=== PATIENT | male | born 1960 | race Caucasian/White ===

== ENCOUNTER 2024-08-24 13:24 | Inpatient (IN) | payer MEDICARE, OTHER, SELFPAY ==
[2024-08-24] VITALS (29 sets, daily range): BP systolic 90–125; BP diastolic 50–89; BMI 30.1; BMI 31.2
--- NOTE | 2024-08-24 08:44 | ED.GENMED ---
History of Present Illness
General
Chief Complaint: Heart Rate Problem
Source: patient
Exam Limitations: none
Time Seen by Provider: 08/24/24 08:30
History of Present Illness
History of Present Illness:
See MDM
Past History
Past History
ED Past Medical History: HTN and Other
ED Past Surgical History: Cardiac
Social History
Tobacco: Non-smoker
Alcohol: None
Phy Exam
Physical Exam
Physical Exam:
See MDM
Course
Orders/Labs/Results
Orders:
Orders
08/24/24 08:33
Electrocardiogram (*1) Urgent
Reason for Study: Chest Pain
EKG- Treatment ONCE
08/24/24 08:35
Complete Blood Count/With Diff Urgent
Comprehensive Metabolic Panel Urgent
Magnesium Urgent
PTT Urgent
Prothrombin Time Urgent
Troponin I Urgent
08/24/24 10:43
Consult Cardiology [CARDIOLOGY CONSULT] Urgent
Consulting Provider: Bud Boone
Was physician already notified: Yes
Amiodarone [Cordarone] 900 mg DEXTROSE 5% PVC-free BAG [D5W PVC-free BAG] 500 ml IV NOW
Initial Dose in mg/min:: 1
Duration of initial dose (hours):: 6
Subsequent dose in mg/min:: 0.5
Duration of subsequent dose (hours):: 18
Maximum dose in mg/min:: 1
Hold and notify provider if:: Heart rate < 60 BPM or SBP < 90 mmHg or MAP < 60 mmHg
Abnormal Lab Results
08/24/24
08:35
MCH 32.6 H pg
(27.0-31.0)
Lymphocytes % 19.2 L %
(20.5-51.1)
Carbon Dioxide 21 L mmol/L
(22-30)
BUN 25 H mg/dl
(9-20)
Glucose 121 H mg/dl
(70-99)
Troponin I 0.038 H* ng/ml
08/24/24 08:35
08/24/24 08:35
Vital Signs
Initial and Last Documented VS:
Initial Vital Signs
BP
125/77
08/24/24 08:36
Last Documented Vital Signs
Pulse Resp BP Pulse Ox
66 18 96/67 96
08/24/24 10:30 08/24/24 10:30 08/24/24 10:30 08/24/24 10:30
MDM/Problems Addressed
Differential Diagnosis Includes:
HPI and MDM Narrative:
64-year-old male presenting for evaluation of multiple shocks from his defibrillator. Patient states his defibrillator was placed about a year ago due to low ejection fraction. Patient was hunting today and he was pulling out the deer. He felt 4
shocks. EMS arrived and noted that he was nonsustained V. tach and had multiple rounds of PVCs. They called for medical command and gave 150 mg of amiodarone. Patient currently denying any chest pain or shortness of breath
Physical exam
General: Well appearing and non-toxic
HEENT: protecting airway
Neck: appears supple
CV: No evidence of cyanosis. Regular rate and rhythm
Resp: No accessory muscle use. Lungs clear
Abd: Non-distended
Extremities: No deformities
Neuro: alert
Psych: Normal affect
Skin: Intact
Problems Addressed including Acute and Chronic Conditions affecting care:
1. Defibrillator shock
Acuity: acute
Prognosis: unstable
Details: Patient get amiodarone by EMS. Will obtain basic blood work and discussed case with cardiology
Updates
Case discussed with cardiology who evaluated the interrogation report. It appears that the shocks were not catching. Will place on amnio drip and admit. ZOLL pads placed
Differential Diagnosis (but not limited to): Coronary artery disease, V. tach, V-fib
Testing considered: Chest x-ray but he denies shortness of breath or chest pain
Drug therapy (if applicable): OTC meds, please see d/c instruction regarding Rx drugs
Amount and/or Complexity of Data Reviewed
Clinical info obtained from: Patient
External data reviewed: N/A
Labs I independently reviewed (but not limited to): Mildly elevated troponin but this is expected given 4 shocks
Radiology: N/A
Pulse Ox: not hypoxic
EKG independently reviewed: Sinus rhythm, left axis, no STEMI
Commercial Real Estate Assistant: Sinus rhythm
Critical Care: N/A
Risk of Complication:
Social Determinants of health: Good social support
Discussed with other providers: Cementer Helper, hospitalist
Escalation of Care includes Admit/Obs: Given that the defibrillator shocks are not catching, will place on Amio drip and admit
Occasional wrong word or 'sound a like' substitutions may have occurred due to the inherent limitations of voice recognition software. Read the chart carefully and recognize, using context, where substitutions have occurred.
*Critical Care Note
Total Time (30-74mins, 75-104mins- exclusive of procedures): Not Applicable
ED Attending Note
-
Portions of this chart may have been created with voice recognition software.� Occasional wrong word or��sound alike� substitutions may have occurred due to the inherent limitations of voice recognition software.
Discharge Plan
Departure
Patient Disposition: Admit
Date of Disposition: 08/24/24
Time of Disposition: 10:47
Admit to: IMU
Presentation/result/management discussed w/ accepting MD/DO: Hospitalist
Discharge Problem:
V-tach
Prescriptions:
No Action
spironolactone 25 mg Tablet
12.5 mg PO DAILY
metoprolol succinate 25 mg Tablet Extended Release 24 Hr
50 mg PO DAILY AT 0700
metoprolol succinate 25 mg Tablet Extended Release 24 Hr
25 mg PO ONCE PM
valsartan 160 mg Tablet
160 mg PO BID
Eliquis 5 mg Tablet
5 mg PO BID
PreserVision AREDS 2 Plus MV 200 mcg-15 mcg- 5 mg-1 mg Capsule
1 cap PO BID
Discharge Date and Time
Print Language: SINHALA
[2024-08-24 08:53] LABS: % Basophils 1.4 % (0-2); % Eosinophils 1.8 % (0-6); % Immature Granulocytes 0.5 % (0-0.5); % Lymphocytes 19.2 % (20.5-51.1); % Monocytes 8.2 % (1.7-9.3); % Neutrophils 68.9 % (42.2-75.2); Absolute Basophils 0.1 10^3/uL (0-0.2); Absolute Eosinophils 0.1 10^3/uL (0-0.7); Absolute Lymphocytes 1.2 10^3/uL (1.2-3.4); Absolute Monocytes 0.5 10^3/uL (0.1-0.6); Absolute Neutrophils 4.3 10^3/uL (1.4-6.5); Hematocrit 43.2 % (39.0-52.0); Hemoglobin 15.5 g/dL (13.0-18.0); Mean Corp Hgb Conc. 35.9 g/dL (33.0-37.0); Mean Corpuscular Hgb 32.6 pg (27.0-31.0); Mean Corpuscular Volume 90.8 fL (80.0-94.0); Mean Platelet Volume 10.4 fL (7.4-10.4); Nucleated Red Blood Cells % 0 % (-); Platelet Count 173 10^3/uL (130-400); Red Blood Cell Count 4.76 10^6/uL (4.70-6.10); Red Cell Dist. Width 12.2 % (11.5-14.5); White Blood Cell Count 6.2 10^3/uL (4.8-10.8)
[2024-08-24 09:05] LABS: ALT (SGPT) 36 U/L (0-50); AST (SGOT) 36 U/L (17-59); Albumin 4.5 g/dl (3.5-5.0); Alkaline Phosphatase 93 U/L (38-126); Blood Urea Nitrogen 25 mg/dl (9-20); Calcium 9.2 mg/dl (8.4-10.2); Carbon Dioxide 21 mmol/L (22-30); Chloride 105 mmol/L (98-107); Estimated Creatinine Clearance 87 ml/min; Glucose 121 mg/dl (70-99); INR 1.06; Magnesium 2.1 mg/dl (1.6-2.3); PT 14.1 Sec (11.4-14.6); Potassium 4.1 mmol/L (3.5-5.1); Sodium 139 mmol/L (135-145); Total Bilirubin 0.5 mg/dl (0.2-1.3); Total Protein 7.3 g/dl (6.3-8.2); eGFR > 60.00
[2024-08-24 09:06] LABS: APTT 34.2 Sec (23.4-35.0)
[2024-08-24 09:20] LABS: Troponin I 0.038 ng/ml
--- NOTE | 2024-08-24 10:41 | CON.CAR ---
Consultation
Consultation Request
Date/Time Consultation Requested: 08/24/2024 at 10 AM
Date/Time Consultation Performed: 08/24/2020 4:10 AM
Requesting Provider: Dr. Bain
Performing Provider: Dr. Boone
Reason for Consultation: ICD shocks
Medical History
-
History of Present Illness:
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
64-year-old male with history of nonischemic cardiomyopathy, reported EF 20%,VT, [employer] ICD, A-fib on remote monitoring ,eport of previous left ventricular thrombus anticoagulation with Eliquis who presented because his ICD went off 4
times. Patient states he was in his usual state of health and went hunting today. He was dragging a deer out of the [place] and shortly after he started dragging a deer felt something in his chest he had no prodrome no lightheadedness or presyncopal
symptoms no palpitations or heart racing he stopped what he was doing and then started to drag a deer again and it went off a second time so he stopped and then it went up a third and then a fourth time he was with his son who called 911 patient
then rested and sat by a tree. He is felt fine since then he says his chest muscle feels a little sore like he is worked out but otherwise no shortness of breath or other symptoms. No recent changes in medical therapy he denies having his ICD
fired in the past.
Review of systems otherwise unremarkable.
Review of records from [facility] patient with history of nonischemic cardiomyopathy and nonsustained VT cardiac catheterization 12/2022 no obstructive coronary artery disease cardiac MRI with EF 24% he wore a LifeVest for period of
time and previously was noticed to have VT below the therapy zone patient had dual-chamber ICD [employer]. 06/2023 ejection fraction 30 to 35% by echo could not exclude apical thrombus. He had remote monitoring 08/14/2023 noting A-fib very
brief episode patient is currently maintained on Eliquis based on his description it sounds as if it was placed for concern of apical thrombus
Past medical history as noted above
Medications
valsartan 160 mg twice daily
Toprol-XL 50 mg in a.m.
Spironolactone 12.5 mg a day
Eliquis 5 mg twice daily
Allergy -Farxiga -
Social History
Tobacco: Non-Smoker
Personal:
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
Family History
Family History: CAD (Negative for premature CAD)
Allergies / Home Medications
Allergy/AdvReac Type Severity Reaction Status Date / Time
No Known Allergies Allergy Unverified 08/24/24 08:46
�Medication �Instructions �Recorded �Confirmed �Type
apixaban 5 mg tablet (Eliquis) 5 mg PO BID 08/24/24 08/24/24 History
metoprolol succinate 25 mg 25 mg PO ONCE PM 08/24/24 08/24/24 History
tablet,extended release 24 hr
metoprolol succinate 25 mg 50 mg PO DAILY AT 0700 08/24/24 08/24/24 History
tablet,extended release 24 hr
mv-mn-folic 200 mcg-vit K 15 1 cap PO BID 08/24/24 08/24/24 History
mcg-lutein 5 mg-zeaxanthin 1 mg
capsule (PreserVision AREDS 2 Plus
Multivit)
spironolactone 25 mg tablet 12.5 mg PO DAILY 08/24/24 08/24/24 History
valsartan 160 mg tablet 160 mg PO BID 08/24/24 08/24/24 History
Review of Systems
-
All other systems: Negative unless noted
Physical Exam
Vital Signs
BP Pulse Ox
125/77 93
08/24/24 08:36 08/24/24 08:45
Lab Results
08/24/24 08:35
08/24/24 08:35
Troponin I 0.038 ng/ml H* 08/24/24 08:35
Physical Exam
General: Well Developed and Well Nourished
HEENT: Normocephalic, Anicteric and Other (EOMI PERRL, neck no adenopathy no JVD)
Respiratory: Clear and Wheezes
Cardiac: Regular Rhythm
GI: Soft, Non Tender, Normal Bowel Sounds and Other (No mass no hepatosplenomegaly detected)
Genito-urinary: No Costovertebral Tender
Skin: Warm and Dry
Neuro: Awake and Alert
Hematologic/Lymphatic: No Lymphadenopathy
Impression / Plan
-
ICD shock/ventricular tachycardia
-Patient with 4 shocks for VT. VT rates ranging from the 160s to 200. Patient tolerated the episodes without syncope or near syncope. Does not appear that VT promptly broke with ICD therapy.
Reviewed with EP
-IV amiodarone
-Monitor for recurrent VT
-Due to question of effectiveness of ICD therapy we will keep pads on patient.
-EP to further review ICD this admission
-Echo this admission
-Check troponins
-No prior history of obstructive disease based on report of catheterization in 2022. Will determine with EP whether to proceed with additional cath.
.
Cardiomyopathy.
-Last EF 30-35%
-Euvolemic
-Continue with current GDMT
-Note patient did not tolerate Entresto
-He reports an allergy to Farxiga
.
History of LV thrombus. Suspected on prior echo. Continue Eliquis
PAF. Reported to have some A-fib noted on prior remote monitoring. Continue anticoagulation
Data Reviewed
-
EKG: Report Reviewed by me
Radiology: Report Reviewed by me
Ultrasound: Report Reviewed by me
Medical Tests (Nuc Med, Echo etc): Report Reviewed by me
Labs: Labs Reviewed by me
[2024-08-24] MEDS: CORDARONE 518 MG IV (11:23)
--- NOTE | 2024-08-24 12:51 | HPS.HSE ---
Family Physician
-
Family Physician: Ese Taylor
Chief Complaint
-
ICD discharge x 4
History of Present Illness
64-year-old male with HFrEF (LVEF 20%, nonischemic cardiomyopathy), AF on Eliquis, HTN, H/O VT s/p AICD, H/O LV thrombus that presented to the ED today after his ICD discharged 4 times. Was in his usual state of health and went hunting today. Was
dragging a deer out of the [place] when he had a sensation of discomfort in his chest. Denies lightheadedness, dyspnea, other prodromal symptoms. States he stopped what he was doing then started to drag the deer again and it occurred again.
Happened 2 more times and his son called 911. Complained of muscular discomfort of the chest wall subsequently but no other symptoms.
AFVSS on arrival. Initial labs unremarkable. ECG showed sinus rhythm with first-degree AVB, LAD, low voltage but no acute ST changes or T wave abnormalities. Initial troponin 0.038. Was seen by cardiology while in the ED who initiated IV
amiodarone drip. Recommended to keep Zoll pads in place due to questionable effectiveness of ICD. Recommended echo and troponin trending. Hemodynamically stable throughout ED course
Medical History
Past Medical History
Past Medical History: Reports CHF and HTN
Past Surgical History: Reports Cardiac (ICD placement, negative coronary angiography at [facility])
Social History
Tobacco: Non-smoker
Alcohol: Occasional
Drug: None
Family History
Family History: Not pertinent (Negative for early onset CHF or CAD) and Other
Allergies / Home Medications
Allergies reflects when Allergies were last updated in [employer].
Home Medications with original date entered in [employer]
Allergy/Medication List:
Allergies
Allergy/AdvReac Type Severity Reaction Status Date / Time
No Known Allergies Allergy Unverified 08/24/24 08:46
Home Medications
acetaminophen 325 mg tablet (Tylenol) 650 mg PO Q4HPRN PRN shoulder pains 08/24/24
apixaban 5 mg tablet (Eliquis) 5 mg PO BID 08/24/24
metoprolol succinate 25 mg tablet,extended release 24 hr 25 mg PO QPM 08/24/24
metoprolol succinate 25 mg tablet,extended release 24 hr 50 mg PO DAILY 08/24/24
mv-mn-folic 200 mcg-vit K 15 mcg-lutein 5 mg-zeaxanthin 1 mg capsule (PreserVision AREDS 2 Plus Multivit) 1 cap PO BID 08/24/24
spironolactone 25 mg tablet 12.5 mg PO DAILY 08/24/24
valsartan 160 mg tablet 160 mg PO BID 08/24/24
Review of Systems
-
History Source: Patient
A 12 point ROS was completed and negative except as noted: Yes
Constitutional: Reports No Symptoms
EENT: Reports No Symptoms
Respiratory: Reports No Symptoms
Cardiac: Reports See HPI
Abdomen/GI: Reports No Symptoms
: Reports No Symptoms
Musculoskeletal: Reports No Symptoms
Skin: Reports No Symptoms
Neurological: Reports No Symptoms
Endocrine: Reports No Symptoms
Hematologic/Lymphatic: Reports No Symptoms
Psych: Reports No Symptoms
Physical Exam
Vital Signs
Vital Signs
Pulse Resp BP Pulse Ox
66 18 96/67 96
08/24/24 10:30 08/24/24 10:30 08/24/24 10:30 08/24/24 10:30
Physical Exam
General: No Apparent Distress, Comfortable, Conversant and Obese
HEENT: NormoCephalic, Anicteric, Moist mucous membranes, Atraumatic and PERRLA
Respiratory: Clear and Non Labored Respirations; No Accessory Resp Muscle Use
Cardiac: S1/S2 and Regular Rhythm; No Murmur, Rub, Gallop, Peripheral Edema or JVD
GI: Soft, Non Tender, Non Distended and Normal Bowel Sounds
Musculoskeletal: No Clubbing, No Cyanosis and No Edema
Skin: Warm and Dry; No Rash or Jaundice
Neuro: AO x 3 and Nonfocal/grossly intact; No Tremors
Psych: Calm
Laboratory Results
-
08/24/24 08:35
08/24/24 08:35
Laboratory Results
PT 14.1 Sec (11.4-14.6) 08/24/24 08:35
INR 1.06 08/24/24 08:35
APTT 34.2 Sec (23.4-35.0) 08/24/24 08:35
Total Bilirubin 0.5 mg/dl (0.2-1.3) 08/24/24 08:35
AST 36 U/L (17-59) 08/24/24 08:35
ALT 36 U/L (0-50) 08/24/24 08:35
Alkaline Phosphatase 93 U/L (38-126) 08/24/24 08:35
Troponin I 0.038 ng/ml H* 08/24/24 08:35
Data Reviewed
-
Lab Data: Labs Reviewed by me and Discussed with Patient
Impression/Plan
-
#Ventricular tachycardia with AICD discharge x4
#H/O VT S/P AICD
-Unclear etiology, possibly malfunctioning AICD
-Status post 4 discharges while out hunting with family
-Had previous LHC at [facility] that was negative
-Evaluated by cardiology in the ED, considering repeat LHC
-Order transthoracic echocardiogram
-Continue IV amiodarone per cardiology
-Monitor on telemetry, maintains ZOLL pads
-Electrolyte goals: K >4, mag >2
#Elevated serum troponin
-Suspect secondary to AICD discharge/VT, cannot rule out underlying ischemia though
-No ischemic ECG findings on studies here, initial troponin 0.038
-Will continue to trend troponin with serial ECG, monitor on telemetry
-Cardiology considering [facility] with angiography while
#HFrEF
#Nonischemic cardiomyopathy
-Unclear etiology for his heart failure; DDx include infiltrative disease, occult ischemia, possible effect of COVID vaccine (?)
-Per records from [facility] LVEF 20%, recent negative coronary angiography
-GDMT includes beta-caroline, MRA, ARB; no SGLT2 (allergy) or ARNI (did not tolerate)
-Not on any standing dose of loop diuretic regimen; appears euvolemic today
-Would consider transition ARB to PRAMOD inhibitor for improved efficacy and HFrEF
#Atrial fibrillation
-Home medications include metoprolol succinate for rate control, Eliquis for anticoagulant
-No known history of electrophysiologic intervention/ablation
-Stable as of now
#HTN
-Antihypertensive regimen includes GDMT as above
-Blood pressure currently on soft side though acceptable for his LVEF
#H/O LV thrombus
-Remains on Eliquis
DVT prophylaxis: Home Eliquis
Diet: Regular, n.p.o. after midnight
CODE STATUS: Full code
Disposition: IVU
--- NOTE | 2024-08-24 14:39 | PTCARENOTE ---
patient arrived from ER with zoll pads on, hand off monitored completed as per protocol. patient on monitor paced rhythm, VSS. IV amiodarone @ 33.3cc/hr via left forearm #20g. patient voided in urinal at bedside. oriented to room and surroundings.
[2024-08-24 15:44] LABS: Troponin I 0.491 ng/ml
--- NOTE | 2024-08-24 16:04 | PTCARENOTE ---
second troponin was drawn and snet to lab, results 0.491, TT Dr. Boone
[2024-08-24] MEDS: TOPROL XL 25 MG PO (17:54)
[2024-08-24] MEDS: OCUVITE SOFTGEL 1 CAP PO (19:33)
[2024-08-24] MEDS: TYLENOL 650 MG PO (19:34)
[2024-08-24] MEDS: DIOVAN 160 MG PO (19:34)
[2024-08-24] MEDS: ELIQUIS 5 MG PO (19:35)
--- NOTE | 2024-08-24 21:07 | PTCARENOTE ---
received patient at the change of shift. AAOx3. denies any sob. complains of muscle 'soreness' around chest and a headache. PRN tylenol given-see mar. Amio gtt infusing at 0.5 mg/min per protocol. IV site intact. troponin sent and received- 0.290.
Apaced on tele 60s. bp stable. assisted patient to the BR-steady, no issues. educated patient to inform RN with any changes and to call for assistance. zoll pads replaced. chest/back clipped prior to placing pads on patient. PM care completed. call
esquivel within reach. makes needs known.
[2024-08-25 03:29] VITALS: BP 97/68
[2024-08-25 04:50] LABS: % Basophils 1.6 % (0-2); % Eosinophils 4.2 % (0-6); % Immature Granulocytes 0.4 % (0-0.5); % Lymphocytes 35.9 % (20.5-51.1); % Neutrophils 47.9 % (42.2-75.2); Absolute Basophils 0.1 10^3/uL (0-0.2); Absolute Eosinophils 0.2 10^3/uL (0-0.7); Absolute Lymphocytes 1.8 10^3/uL (1.2-3.4); Absolute Monocytes 0.5 10^3/uL (0.1-0.6); Absolute Neutrophils 2.4 10^3/uL (1.4-6.5); Hematocrit 43.2 % (39.0-52.0); Hemoglobin 15.1 g/dL (13.0-18.0); Mean Corpuscular Hgb 32.5 pg (27.0-31.0); Mean Corpuscular Volume 92.9 fL (80.0-94.0); Mean Platelet Volume 10.7 fL (7.4-10.4); Nucleated Red Blood Cells % 0 % (-); Platelet Count 165 10^3/uL (130-400); Red Blood Cell Count 4.65 10^6/uL (4.70-6.10); Red Cell Dist. Width 12.4 % (11.5-14.5)
[2024-08-25 06:19] LABS: Blood Urea Nitrogen 20 mg/dl (9-20); Calcium 8.8 mg/dl (8.4-10.2); Carbon Dioxide 26 mmol/L (22-30); Chloride 106 mmol/L (98-107); Estimated Creatinine Clearance 92 ml/min; Glucose 92 mg/dl (70-99); Magnesium 2.2 mg/dl (1.6-2.3); Potassium 4.3 mmol/L (3.5-5.1); Sodium 141 mmol/L (135-145); eGFR > 60.00
[2024-08-25 07:01] VITALS: BP 105/71
--- NOTE | 2024-08-25 07:30 | W.PN.CD ---
Addendum entered and electronically signed by Bud Boone MD 08/25/24 13:40:
I saw and examined the patient.
The AUTO BODY REPAIRMAN's note was reviewed and I agree with the note.
reviewed notes from outpatient sheet pile driver operator. Full cath report not available but notes state that cath at [facility] 12/2022 with no obstructive CAD.
Original Note:
Today's Communication / Plan
-
transition IV amiodarone to oral
NPO after midnight.
Impression / Plan
-
ICD shock/ventricular tachycardia
-Patient with 4 shocks for VT. VT rates ranging from the 160s to 200. Patient tolerated the episodes without syncope or near syncope. Does not appear that VT promptly broke with ICD therapy.
Reviewed with EP
-IV amiodarone- transition to oral load
-Monitor for recurrent VT
-Due to question of effectiveness of ICD therapy we will keep pads on patient.
-EP to further review ICD this admission
-Echo this admission
-Check troponins
-No prior history of obstructive disease based on report of catheterization in 2022. Will determine with EP whether to proceed with additional cath. NPO after night
(Note patitns primary sheet pile driver operator is Dr Khanna and EP who implanted ICD is Dr Gomez)
.
Cardiomyopathy.
-Last EF 30-35% as outpateitn . EF 08/24/24 estimated 40-45%
-Euvolemic
-Continue with current GDMT
-Note patient did not tolerate Entresto
-He reports an allergy to Farxiga
abnorml troponin - may be nonischemic related to VT and ICD shock
.
History of LV thrombus. Suspected on prior echo. Continue Eliquis
PAF. Reported to have some A-fib noted on prior remote monitoring. Continue anticoagulation
Physical Exam
Vital Signs/Labs
Vital Signs
Temp Pulse Resp BP Pulse Ox
98.1 F 71 20 97/68 97
08/25/24 06:59 08/25/24 04:00 08/25/24 06:59 08/25/24 03:29 08/25/24 06:59
08/24/24 08/25/24 08/26/24
06:59 06:59 06:59
Actual Weight 95.9 kg
08/25/24 03:36
08/25/24 03:36
PT 14.1 Sec (11.4-14.6) 08/24/24 08:35
INR 1.06 08/24/24 08:35
APTT 34.2 Sec (23.4-35.0) 08/24/24 08:35
Magnesium 2.2 mg/dl (1.6-2.3) 08/25/24 03:36
LAB Results
08/24/24 08/24/24 08/24/24
08:35 15:07 20:19
Troponin I 0.038 H* 0.491 H* D 0.290 H* D
08/25/24
03:36
Troponin I 0.150 H* D
Physical Exam
Constitutional: No acute distress
Cardiovascular: Rhythm & rate is regular
Respiratory: Respiratory effort normal
GI: Soft
Neuro/Psych: Alert
Data Reviewed
-
Date of Service: August 25, 2024
Medical Decision Making: Reviewed Test Results
Echo: Report Reviewed by me
Medical Tests (PFT, Pathology etc): Report Reviewed by me
Labs: Labs Reviewed by me
[2024-08-25] MEDS: TOPROL XL 50 MG PO (08:34)
[2024-08-25] MEDS: ALDACTONE 12.5 MG PO (08:35)
[2024-08-25] MEDS: PACERONE 400 MG PO ×2 (08:36→19:42)
[2024-08-25] MEDS: DIOVAN 160 MG PO ×2 (08:36→19:42)
[2024-08-25] MEDS: ELIQUIS 5 MG PO ×2 (08:37→19:42)
[2024-08-25] MEDS: OCUVITE SOFTGEL 1 CAP PO ×2 (08:37→19:42)
[2024-08-25] MEDS: LOW STRENGTH ASPIRIN PO (08:38)
[2024-08-25] MEDS: ASPIRIN 325 MG PO (08:38)
--- NOTE | 2024-08-25 08:50 | PTCARENOTE ---
patient awake, watching TV and eating breakfast. Monitor show AV paced, VSS. IV amiodarone @ 16.7 cc/hr, po amiodarone given as ordered and will D/C drip when bag is completed as per MD. pacer pads remain on. patient will go down for chest xray this
am. patient voices no concerns at this time. patient did ask questions concerning plan of care and that he would like his doctors at [facility] to way in on decision making.
[2024-08-25 10:00] VITALS: BMI 31.2
--- NOTE | 2024-08-25 10:43 | PTCARENOTE ---
chest xray completed
--- NOTE | 2024-08-25 11:09 | W.PN.HOSP.TC ---
Today's Communication/Plan
-
N.p.o. after midnight
Left heart cath tomorrow
PO amiodarone regimen
Assessment / Plan
Assessment / Plan
#Ventricular tachycardia with AICD discharge x4
#H/O VT S/P AICD
-Unclear etiology, possibly malfunctioning AICD
-Status post 4 discharges while out hunting with family
-Had previous LHC at [facility] that was negative
-Evaluated by cardiology in the ED, considering repeat LHC
-Echocardiogram performed yesterday showed improved LVEF
-Transitioned IV amiodarone to PO amiodarone
-Monitor on telemetry, maintains ZOLL pads
-Electrolyte goals: K >4, mag >2
-Plan for left heart cath on 08/26
#Elevated serum troponin
-Suspect secondary to AICD discharge/VT, cannot rule out underlying ischemia though
-No ischemic ECG findings on studies here, troponin trend not consistent with ACS
-Will continue to trend troponin with serial ECG, monitor on telemetry
-Cardiology considering LHC with angiography while
#HFrEF
#Nonischemic cardiomyopathy
-Unclear etiology for his heart failure; DDx include infiltrative disease, occult ischemia, possible effect of COVID vaccine (?)
-Per records from [facility] LVEF 20%, recent negative coronary angiography; TTE here showed LVEF 40 to 45%
-GDMT includes beta-caroline, MRA, ARB; no SGLT2 (allergy) or ARNI (did not tolerate)
-Not on any standing dose of loop diuretic regimen; appears euvolemic today
-Would consider transition ARB to PRAMOD inhibitor for improved efficacy and HFrEF
#Atrial fibrillation
-Home medications include metoprolol succinate for rate control, Eliquis for anticoagulant
-No known history of electrophysiologic intervention/ablation
-Stable as of now
#HTN
-Antihypertensive regimen includes GDMT as above
-Blood pressure currently on soft side though acceptable for his LVEF
#H/O LV thrombus
-Remains on Eliquis
DVT prophylaxis: Home Eliquis
Diet: Regular, n.p.o. after midnight
CODE STATUS: Full code
Anticipated Discharge: 24 - 48 hours
Subjective/Interval History
-
Date of Service: August 25, 2024
Seen and examined at bedside. No acute vents reported overnight. AFVSS this morning
He states he feels well, denies any acute complaints including chest pain, dyspnea, palpitations, lightheadedness
Planning for left heart cath tomorrow, states he would like to have his primary precision agronomist involved with planning
Objective Data
-
Labs:
Laboratory Results
08/25/24
03:36
WBC 5.0
Hgb 15.1
Hct 43.2
Plt Count 165
Sodium 141
Potassium 4.3
Chloride 106
Carbon Dioxide 26
BUN 20
Creatinine 0.9
Glucose 92
Calcium 8.8
Vital Signs:
Vital Signs
Temp Pulse Resp BP Pulse Ox
98.1 F 60 20 105/71 97
08/25/24 06:59 08/25/24 09:30 08/25/24 06:59 08/25/24 08:36 08/25/24 08:30
I&O
08/24/24 08/25/24 08/26/24
06:59 06:59 06:59
Intake Total 646.5 / 646.5
Output Total 1175 / 1175
Balance -528.5 / -528.5
Review of Systems
-
History Source: Patient
All other systems: Reviewed and negative
Physical Exam
-
General: Well Developed, Well Nourished, No Apparent Distress and Comfortable
HEENT: Normocephalic, Atraumatic, Moist Mucous Membranes and Anicteric
Respiratory: Clear to Auscultation and Non Labored Respirations
Cardiac: Regular Rhythm and S1/S2; Negative Murmur, Rub or Gallop
GI: Soft, Nontender, Nondistended and Normal Bowel Sounds
Musculoskeletal: No Clubbing, No Cyanosis and No Edema
Skin: Warm, Dry and Normal Turgor; Negative Rash
Neuro: AO x 3 and Nonfocal/Grossly Intact
Psych: Calm
Data Reviewed
-
Labs: Labs Reviewed by me and Discussed with Patient
[2024-08-25 12:03] VITALS: BP 95/70
[2024-08-25 15:14] VITALS: BP 109/74
[2024-08-25] MEDS: TOPROL XL 25 MG PO (17:46)
[2024-08-25 19:37] VITALS: BP 95/66
[2024-08-25 22:23] VITALS: BP 89/57
--- NOTE | 2024-08-26 00:03 | PTCARENOTE ---
Pt rec'd at change of shift awake,alert c/o discomfort from Defib pad on back. Pads removed and new set of pads placed at pts bedside. Paced on telemetry. Pt aware of npo status after mn. call esquivel within reach.
[2024-08-26 03:07] VITALS: BP 98/76
[2024-08-26 04:24] LABS: % Basophils 1.4 % (0-2); % Eosinophils 6.3 % (0-6); % Immature Granulocytes 0.4 % (0-0.5); % Lymphocytes 34.8 % (20.5-51.1); % Monocytes 12.1 % (1.7-9.3); Absolute Basophils 0.1 10^3/uL (0-0.2); Absolute Eosinophils 0.3 10^3/uL (0-0.7); Absolute Lymphocytes 1.7 10^3/uL (1.2-3.4); Absolute Monocytes 0.6 10^3/uL (0.1-0.6); Absolute Neutrophils 2.2 10^3/uL (1.4-6.5); Hemoglobin 14.4 g/dL (13.0-18.0); Mean Corp Hgb Conc. 35.1 g/dL (33.0-37.0); Mean Corpuscular Hgb 32.1 pg (27.0-31.0); Mean Corpuscular Volume 91.3 fL (80.0-94.0); Mean Platelet Volume 10.5 fL (7.4-10.4); Nucleated Red Blood Cells % 0 % (-); Platelet Count 170 10^3/uL (130-400); Red Blood Cell Count 4.49 10^6/uL (4.70-6.10); Red Cell Dist. Width 12.3 % (11.5-14.5); White Blood Cell Count 4.9 10^3/uL (4.8-10.8)
[2024-08-26 04:51] LABS: Blood Urea Nitrogen 20 mg/dl (9-20); Calcium 8.9 mg/dl (8.4-10.2); Carbon Dioxide 23 mmol/L (22-30); Chloride 106 mmol/L (98-107); Estimated Creatinine Clearance 104 ml/min; Glucose 92 mg/dl (70-99); Potassium 4.3 mmol/L (3.5-5.1); Sodium 140 mmol/L (135-145); eGFR > 60.00
[2024-08-26 07:04] VITALS: BP 97/67
--- NOTE | 2024-08-26 07:22 | W.PN.HOSP.TC ---
Addendum entered and electronically signed by Stephanie Lieberman MD 08/26/24 14:26:
I saw and evaluated the patient. I reviewed the resident�s note and agree with findings and plan as documented in the resident�s note
Seen and examined the patient with resident. is at bedside
Patient anxious to go home denies any chest pain or shortness of breath
Exam unremarkable
Discussed with cardiology earlier continue beta-blockers. Would consider sotalol as outpatient amiodarone stopped
Continue Eliquis no need for antiplatelets as he did not comment on that
Reviewed with patient and about no driving for 6 months or unless cleared by his outpatient case folder. Reasoning explained
Need to take blockers especially prior to physical activity discussed. Dose of beta-blockers increased
Discussed with nursing
Discussed with
Total discharge time more than 31 minutes
Original Note:
Today's Communication/Plan
-
Discharge home
Beta-caroline dose increased to 50 mg twice daily
Assessment / Plan
Assessment / Plan
64-year-old male with PMH of HFrEF, AF, hypertension, V. tach status post AICD, left venous thrombus presented to [facility] with AICD discharge x4 while hunting.
#V. tach
Status post AICD discharge x 4
Had previous left heart cath at [facility] that was negative. Patient would like to continue care with providers at [facility]
Cardiology increase metoprolol dose to 50 mg twice daily. Patient told to follow-up with [facility] outpatient
Transition from IV amiodarone to p.o. amiodarone
Continue to monitor on telemetry and maintain ZOLL pads
Continue to monitor potassium (goal greater than 4) and magnesium (goal greater than 2)
#Elevated troponins
Likely secondary to AICD or V. tach, but cannot rule out underlying ischemia
Troponins peaked at 0.290, stop trend. Continue to monitor on telemetry
#HFrEF
Per records at [facility] ejection fraction was previously 20%, 40 to 45% here at [facility]. Improved.
GDMT includes beta-caroline, MRA, ARB�continue. No SGLT2 secondary to allergy
Consider transitioning ARB to PRAMOD inhibitor
#A-fib
Continue Eliquis
#Hypertension
Continue antihypertensive regimen as per GDMT
#History of left venous thrombus
Continue Eliquis
DVT prophylaxis: Home Eliquis
Diet: Regula
CODE STATUS: Full code
Anticipated Discharge: Today
Subjective/Interval History
-
Date of Service: August 26, 2024
CT 4-year-old male with past medical history of HFrEF, A-fib, hypertension, history of V. tach status post AICD, history of left ventricular thrombus that presented to [facility] after ICD discharge 4 times. He was experiencing
intermittent chest discomfort while hunting prior to being brought to in by EMS. EKG showed sinus rhythm with first-degree AV block. Troponins peaked at 0.290 and echo showed reduced EF at 40 to 45% with mild TR, MR and dilated aortic root. In
the ED patient was given IV amiodarone and since has been transition to oral amiodarone. Patient reiterated today that he would like to be transferred to [facility] for care since his primary doctors are located there. He states he was only
brought to [facility] because of proximity to where he was hunting. Awaiting cardiology recommendations regarding next steps.
Objective Data
-
Labs:
Laboratory Results
08/26/24
03:15
WBC 4.9
Hgb 14.4
Hct 41.0
Plt Count 170
Sodium 140
Potassium 4.3
Chloride 106
Carbon Dioxide 23
BUN 20
Creatinine 0.8
Glucose 92
Calcium 8.9
Vital Signs:
Vital Signs
Temp Pulse Resp BP Pulse Ox
98.4 F 60 20 98/76 95
08/26/24 07:00 08/26/24 03:07 08/26/24 07:00 08/26/24 03:07 08/26/24 07:00
I&O
08/25/24 08/26/24 08/27/24
06:59 06:59 06:59
Intake Total 646.5 / 646.5 240 / 240
Output Total 1175 / 1175
Balance -528.5 / -528.5 240 / 240
Review of Systems
-
History Source: Patient
All other systems: Reviewed and negative
Constitutional: Reports No Symptoms
EENT: Reports No Symptoms Reported
Respiratory: Reports No Symptoms
Cardiac: Reports No Symptoms
Abdomen/GI: Reports No Symptoms
Genitourinary: Reports No Symptoms
Physical Exam
-
General: Well Developed, Well Nourished, No Apparent Distress, Comfortable and Conversant
HEENT: Normocephalic and Atraumatic
Respiratory: Clear to Auscultation
GI: Soft, Nontender, Nondistended and Normal Bowel Sounds
Skin: Warm and Dry
Neuro: AO x 3
Psych: Calm
Data Reviewed
-
Medical Tests (Nuc Med, Echo etc): Report Reviewed by me
Labs: Labs Reviewed by me and Discussed with Physician
Old Records: Reviewed
[2024-08-26] MEDS: DIOVAN 160 MG PO (09:08)
[2024-08-26] MEDS: OCUVITE SOFTGEL 1 CAP PO (09:08)
[2024-08-26 09:10] VITALS: BP 109/81
[2024-08-26] MEDS: TOPROL XL 50 MG PO (09:11)
[2024-08-26] MEDS: ALDACTONE 12.5 MG PO (09:11)
[2024-08-26] MEDS: PACERONE 400 MG PO (09:11)
[2024-08-26] MEDS: LOW STRENGTH ASPIRIN 81 MG PO (09:14)
--- NOTE | 2024-08-26 09:31 | W.PN.UPDATE ---
Addendum entered and electronically signed by Nick Arce MD 08/26/24 09:54:
-
He did have successful ATP for VT and had recurrent VT but some ICD shocks were for sinus tachycardia. Recurrent VT was successfully treated with shock. Some sinus tach with PVCs led to VF zone and treatment for sinus tachycardia.
Treatment of sinus tach with beta caroline will help him have less ICD therapy.
-
-
Original Note:
Update Note
Progress Note Update
EP Consult dictated:
Imp:
Monomorphic VT with appropriate ICD therapy
- VT treated with ATP but recurrent VT led to ICD shocks. VT recurred. A total of 6 shocks were delivered
Non-ischemic cardiomyopathy
- EF per patient about 20%
- Echo here LVEF 40-45%, LVH, mild MR/TR
PAF, on Eliquis/BB
HTN
Suspected LV thrombus
Suggest:
- I reviewed otpions for VT management: a) just increase BB, b) move to AAD, I prefer sotalol over amio given younger age and reasonable LVEF, c) early ablation. By recent study for ISCHEMIC cardiomyopathy (OLAYINKA 2,
https://www.nejm.org/doi/full/10.1056/NHQWnp6146125) would favor ablation as next step. Non-ischemic VT may not behave the same and I think sotalol is my preferred strategy. But using shared decision making patient chose just to increase beta
caroline therapy and follow up with his EP in [place].
- He knows that he cannot drive a car or perform other activities that could pose a danger with ICD shock or VT.
- I stopped Amio
- I increased metoprolol ER to 50 BID
- OK for home today
[2024-08-26] MEDS: TOPROL XL 25 MG PO (10:33)
--- NOTE | 2024-08-26 10:39 | PTCARENOTE ---
received patient this am at change of shift, patient in bed, no c/o CP, SOB, dizziness. patient wants to have his treatment at [facility] where his doctors are from, Dr. Arce saw patient and will D/C to home. patients stated that they have
an appointment with their mold stamper and repairer tomorrow afternoon. monitor shows Apaced, VSS.
[2024-08-26 11:05] VITALS: BP 107/66
--- NOTE | 2024-08-26 11:26 | CM ---
Chart reviewed. Patient is independent of ADLS, lives with his in a [address], 1 [address], 0 DME. Plan is for the patient to return home. CM to follow
--- NOTE | 2024-08-26 14:43 | PTCARENOTE ---
D/C instructions given to patient and , both verbalizes understanding. INT D/C'd, telemetry D/C'd, personal belongings packed and sent home with patient. D/C to home via wc accompanied by staff.
--- NOTE | 2024-08-26 15:21 | W.DCSUMMARY ---
Discharge Summary
Discharge Data
Date of Admission: 08/24/24
Date of Discharge: 08/26/24
Total time spent discharging patient (in min): 45
-
Pending Results: No
Hospital Course
Discharging Physician : Stephanie Lieberman
Primary care physician : Ese Taylor
Principal Discharge diagnosis : VTach, Chronic heart failure, Atrial fibrillation
Chronic Discharge diagnosis : HFrEF, AFib on Eliquis, HTN, H/O VT s/p AICD, H/O LV thrombus
Hospital Course : 64-year-old male with past medical history of HFrEF, A-fib, hypertension, history of V. tach status post AICD, history of left ventricular thrombus that presented to [facility] after ICD discharge 4 times. He was
experiencing intermittent chest discomfort while hunting prior to being brought to in by EMS. EKG showed sinus rhythm with first-degree AV block. Troponins peaked at 0.290 and echo showed reduced EF at 40 to 45% with mild TR, MR and dilated aortic
root. Ejection fraction was improved from prior study which showed EF of 20%. In the ED patient was given IV amiodarone and since has been transition to oral amiodarone, now stopped. Patient reiterated today that he would like to be transferred
or follow-up outpatient with [facility] for care since his primary doctors are located there. He states he was only brought to [facility] because of proximity to where he was hunting. Per cardiology, patient was stable to be
discharged, but needs to follow-up with his airbrush artist photography as soon as possible. He has an appointment scheduled for tomorrow afternoon. Prior to discharge, metoprolol dose was increased to 50 mg twice a day and home anticoagulation of Eliquis was
continued. Recommendations made to stop driving for 6 months or until clearance from PCP/airbrush artist photography. Patient stable for discharge.
#V. tach
Status post AICD discharge x 4. Follow-up with primary airbrush artist photography outpatient tomorrow. Increased metoprolol dose to 50 mg twice a day. Consider sotalol outpatient.
#Elevated troponins
Likely secondary to AICD. Troponins peaked at 0.290, downtrending.
#HFrEF
Per records at [facility] ejection fraction was previously 20%, 40 to 45% here at [facility]. Improved. Continue GDMT which includes beta-caroline, MRA, ARB. Consider transitioning ARB to PRAMOD inhibitor outpatient.
#A-fib
Continue Eliquis
#Hypertension
Continue antihypertensive regimen as per GDMT
#History of left venous thrombus
Continue Eliquis
Important imaging findings :
Echocardiogram 08/24:
CONCLUSIONS
Mildly to moderately reduced left ventricular systolic function.
LV ejection fraction is 40-45%
Mild tricuspid regurgitation.
Mild mitral regurgitation.
Mildly dilated aortic root.
Chest x-ray 08/25:
IMPRESSION:
No acute cardiopulmonary process.
Discharge Plan
-
Patient Disposition: Home (Routine Discharge)
Discharge Diagnosis/Procedures: VTach
Chronic heart failure
Atrial fibrillation
Condition: Fair
Diet: 2 Gram Sodium and Restrict fluids to 64 oz
Activity: No strenuous activity
Driving Restrictions: Not until seen by your Dr
Bathing Restrictions: None
Others Tests: Must seek clearance from [facility] cardiology prior to driving
Specialty Instructions: Weigh Daily- Call MD for wt gain/loss 3 lbs overnight/5 lbs in 1 week
Referrals:
Ese Taylor MD [Family Provider] - in less than 1 week
Additional Discharge Medication Instructions: Please make sure to take metoprolol (beta-caroline) prior to any strenuous activity to limit risk of arrhythmia
Prescriptions:
New
metoprolol succinate 50 mg Tablet Extended Release 24 Hr
50 mg PO BID Qty: 90 0RF
Continued
spironolactone 25 mg Tablet
12.5 mg PO DAILY
valsartan 160 mg Tablet
160 mg PO BID
Eliquis 5 mg Tablet
5 mg PO BID
PreserVision AREDS 2 Plus MV 200 mcg-15 mcg- 5 mg-1 mg Capsule
1 cap PO BID
acetaminophen [Tylenol] 325 mg Tablet
650 mg PO Q4HPRN PRN (Reason: shoulder pains)
Discontinued
metoprolol succinate 25 mg Tablet Extended Release 24 Hr
50 mg PO DAILY
metoprolol succinate 25 mg Tablet Extended Release 24 Hr
25 mg PO QPM
Discharge Orders:
Discharge Patient (As Directed); Ordered 08/26/24
Ordered By: Alivia Souza
Care Plan Goals
Care Plan Goals:
Problem: Readiness for enhanced knowledge related to diagnosis and treatment plan
Goal: Understand your diagnosis and treatment plan needs, including medications if applicable.
Instructions: Know your diagnosis, underlying causes and treatment plan options, including medications if applicable. Consult with your health care team to learn about your diagnosis and treatment plan, including medications if applicable.
Discharge Date and Time
Discharge Date/Time: 08/26/24 15:24
Print Language: DIVEHI
== END 2024-08-26 15:24 | disposition home or self-care (01) | DRG 309 ==
LOC: IVU 13:24
PROVIDERS: ADMITTING PHYSICIAN Internal Medicine; ATTENDING PHYSICIAN Hospitalist; CONSULT PHYSICIAN Internal Medicine Cardiovascular Disease; EMERGENCY PHYSICIAN Student in an Organized Health Care Education/Training Program; FAMILY PHYSICIAN Family Medicine
DX: I47.29 Other ventricular tachycardia (principal); I42.8 Other cardiomyopathies; I50.22 Chronic systolic (congestive) heart failure; I11.0 Hypertensive heart disease with heart failure; I48.0 Paroxysmal atrial fibrillation; Z79.01 Long term (current) use of anticoagulants; Z95.810 Presence of automatic (implantable) cardiac defibrillator; I44.0 Atrioventricular block, first degree; I77.810 Thoracic aortic ectasia; I25.10 Atherosclerotic heart disease of native coronary artery without angina pectoris; Z79.899 Other long term (current) drug therapy
CPT/HCPCS: 71046; 80048; 80053; 83735; 84484; 85025; 85610; 85730; 93005; 93306; 96365; 96366; 99285